=== PATIENT | female | born 1990 | race Caucasian/White ===

== ENCOUNTER 2025-04-18 16:20 | Emergency (ER) | payer BC, SELFPAY ==
[2025-04-18 16:31] VITALS: BP 114/94; BP 150/91; PULSE 114; PULSE 116; RESP 20; TEMP 36.7; O2SAT 98; BMI 42.5
--- NOTE | 2025-04-18 16:53 | ECG_ITS ---
Test Reason : WEAKNESS Blood Pressure : */* mmHG Vent. Rate : 99 BPM Atrial Rate : 99 BPM P-R Int : 154 ms QRS Dur : 82 ms QT Int : 378 ms P-R-T Axes : 30 49 42 degrees QTcB Int : 485 ms Normal sinus rhythm Prolonged QT Abnormal ECG No previous ECGs available Referred By: Pierre Poole Electronically Signed By: JULIAN SUNSHINE
--- NOTE | 2025-04-18 17:24 | ED.GENADULT ---
HPI - General Adult General Chief complaint: General Medical Stated complaint: dizzy, N/V bp 145/101 Time Seen by Provider: 04/18/25 16:23 Source: patient, RN notes reviewed and old records reviewed Mode of arrival: EMS Limitations: no limitations History of Present Illness ED Provider: Virgilio HPI narrative: 34-year-old female with a past medical history significant for PCOS not a new medication presents for evaluation of alcohol withdrawal. Patient reports that she drinks about a pt of vodka daily. Her last drink was yesterday. She reports that she was seen at a hospital in [facility] for alcohol withdrawal and was discharged to a rehab facility. She got to her rehab facility and [place] today which is [facility] in [place] Apparently the patient arrived to the detox facility and was hypertensive as high as 170/109 and was also tachycardic pain The patient reports feeling shaky and nauseous pain She was sent here for further evaluation and medical clearance. The patient denies any pain Related Data Allergies Allergy/AdvReac Type Severity Reaction Status Date / Time No Known Allergies Allergy Verified 04/18/25 16:43 Review of Systems Constitutional: Constitutional: Denies body ache(s), Denies chills, Reports fatigue, Denies fever(s), Denies frequent falls, Denies headache(s) and Reports weakness Eyes: Eyes: Denies blurry vision ENT: Denies vertigo, Denies dizziness and Denies headache(s) Cardiovascular: Cardiovascular: Denies chest pain and Denies dyspnea on exertion Respiratory: Respiratory: Denies cough and Denies dyspnea on exertion Gastrointestinal: Gastrointestinal: Denies abdominal pain, Reports nausea and Denies vomiting Musculoskeletal: Musculoskeletal: Denies back pain Integumentary/Breasts: Skin/Breast: Denies rash Neurologic: Denies vertigo, Denies dizziness, Denies frequent falls, Denies headache(s) and Reports weakness Psychiatric: Psychiatric: Reports anxiety Endocrine: Endocrine: Reports fatigue PMFSH Social History Social History Advance Directives: No Advance Directives Information Provided: Yes Physical Exam ED Vital Signs: Vital Signs - 24 hr 04/18/25 16:31 04/18/25 19:16 04/18/25 21:38 Temperature 98.1 F 97.8 F 98.2 F Pulse Rate 116 H 131 H 104 H Respiratory Rate 20 20 20 Blood Pressure 114/94 H 148/97 H 159/92 H Pulse Oximetry 98 99 98 Oxygen Delivery Method Room Air Room Air Room Air 04/18/25 22:34 Temperature 98.2 F Pulse Rate 104 H Respiratory Rate 20 Blood Pressure 159/92 H Pulse Oximetry 98 Oxygen Delivery Method Room Air BMI result Body Mass Index 42.5 Const General: healthy appearing, comfortable, no acute distress, alert and awake Nutritional Appearance: well nourished Orientation/consciousness: patient oriented x3 HENMT Head: Yes normocephalic and Yes atraumatic Eyes Eyelids: Yes eyelids normal Conjunctivae: conjunctivae normal Sclerae: sclerae normal Corneas: corneas normal Pupils: Equal, round and reactive pupils present EOM: EOMs intact bilaterally Neck Neck: Yes full ROM Resp Effort & Inspection: normal respiratory effort, able to speak in complete sentences and not labored GI Inspection: No distended Palpation (GI): Soft to palpation, not firm, nontender, no guarding and not rigid Skin General skin exam: elasticity normal Neuro General: patient oriented x3 Cranial nerves: Yes CN's II-XII intact bilaterally, Yes Equal, round and reactive pupils present and Yes Bilaterally intact EOM present Cognition (Neuro): normal cognition Extrem Other: Moving all extremities well without any obvious deformities Course Reevaluation(s) Reevaluation #1: The patient is given 2 L IV fluids, thiamine, folic acid, Zofran Ativan. She reports that she feels much better, her heart rate has improved. She reports that she is generally 100-110. Her heart rate decreased to 104. She reports feeling significantly improved, she is not nauseous, she is eager for discharge. Repeat BNP shows the CO2 is still low at 15 but significantly improved from the 10 that she was on arrival. Her anion gap is just barely above normal at 21. The patient is not nauseous or vomiting, she can continue to supplement with oral intake. She was offered admission, but would prefer to be discharged back to her facility. I feel the patient can safely be discharged back to their detox facility Time: 22:30 Medications Administered Discontinued Medications Generic Name Dose Route Start Last Admin Trade Name Freq PRN Reason Stop Dose Admin Lactated Ringer's 1,000 mls @ 999 mls/hr 04/18/25 17:00 04/18/25 19:51 Lr IV 04/18/25 18:00 Infused .Q1H1M DOLORES Infusion Thiamine HCl 500 mg/ Sodium 105 mls @ 210 mls/hr 04/18/25 16:53 04/18/25 18:24 Chloride IV 04/18/25 17:22 Infused ONCE ONE Infusion Folic Acid 1 mg/ Sodium 50.2 mls @ 100.4 mls/hr 04/18/25 16:53 04/18/25 19:51 Chloride IV 04/18/25 17:22 Infused ONCE ONE Infusion Magnesium Sulfate 2 gm in 50 mls @ 150 mls/hr 04/18/25 18:21 04/18/25 19:51 Magnesium Sulfate/H2o IV 04/18/25 18:40 Infused ONCE ONE Infusion Lactated Ringer's 1,000 mls @ 999 mls/hr 04/18/25 18:45 04/18/25 22:05 Lr IV 04/18/25 19:45 Infused .Q1H1M DOLORES Infusion Lorazepam 2 mg 04/18/25 17:02 04/18/25 17:48 Lorazepam 1 Mg Tablet PO 04/18/25 17:03 2 mg ONCE ONE Administration Medical Decision Making Medical Decision Making MDM Narrative: 34 year old female presents for evaluation of medical clearance from an alcohol detox facility. The patient complains of hypotension, tachycardia, nausea and shakiness. These are all sign/symptoms of alcohol withdrawal which the patient is at the detox facility for. We will check basic labs including electrolytes, EKG, ethanol level and treat her with IV fluids, thiamine and folic acid. We will give her a dose of Ativan 2 mg orally as she is not vomiting. If medically cleared, the patient can safely be discharged back to the detox facility Differential Diagnosis Differential Diagnoses: The differential diagnosis associated with the presentation includes Alcohol withdrawal Benzodiazepine withdrawal Dehydration ELEAZAR Admission/Observation Consideration of admission/observation: Escalation of care including admission/observation considered Lab Data 04/18/25 17:44 04/18/25 22:10 Labs: Lab Results 04/18/25 04/18/25 04/18/25 Range/Units 17:44 18:45 18:46 WBC 6.0 (4.8-10.8) X10*3/uL RBC 4.76 (4.20-5.50) X10*6/uL Hgb 13.6 (12.0-16.0) g/dl Hct 38.6 (37.0-47.0) % MCV 81.1 (80.0-98.0) fL MCH 28.6 (27.0-33.0) pg MCHC 35.2 H (31.0-35.0) g/dl RDW 13.7 (11.0-16.0) % Plt Count 152 L (160-400) X10*3/uL MPV 8.9 L (9.4-12.3) fL Immature Gran % (Auto) 0.2 (0.0-0.4) % Neut % (Auto) 54.2 (45-73) % Lymph % (Auto) 39.6 (20-40) % [place] % (Auto) 5.3 (2-11) % Eos % (Auto) 0.2 (0-4) % Baso % (Auto) 0.5 (0-2) % Lymph # (Auto) 2.4 (1.2-4.9) X10*3/uL [place] # (Auto) 0.3 (0.1-1.2) X10*3/uL Eos # (Auto) 0.0 (0.0-0.4) X10*3/uL Baso # (Auto) 0.0 (0.0-0.2) X10*3/uL Abs Immat Gran (auto) 0.01 (0.00-0.03) X10*3/uL Absolute Neuts (auto) 3.3 (2.0-8.3) x10*3/uL Absolute Nucleated RBC 0.000 (0.0-0.012) X10*3/uL Nucleated RBC % (auto) 0.0 (0.0-0.2) /100WBC VBG pH 7.44 H (7.32-7.43) VBG pCO2 26 mmHg VBG pO2 63 mmHg VBG HCO3 17 L (22-26) mmol/L VBG O2 Saturation 88.0 % VBG Base Excess -4.5 mmol/L Sodium 138 (135-145) mmol/L Potassium 4.0 (3.3-5.1) mmol/L Chloride 105 (96-108) mmol/L Carbon Dioxide 10 L* (22-29) mmol/L Anion Gap 27 H (12-20) BUN 9 (9-16) mg/dL Creatinine 0.98 (0.5-1.4) mg/dL Estim Creat Clear Calc 91.3 Estimated GFR > 60 Random Glucose 96 (60-115) mg/dL Calcium 8.5 (8.4-10.2) mg/dL Magnesium 1.3 L* (1.6-2.6) mg/dL Total Bilirubin 0.8 (0.0-1.0) mg/dL AST 149 H (5-31) U/L ALT 89 H (0-31) U/L Alkaline Phosphatase 136 H (39-117) U/L Troponin I High Sens < 2.7 (<3.5-17.0) ng/L Total Protein 7.4 (6.5-8.0) g/dL Albumin 4.1 (3.5-5.0) g/dL Lipase 34 (8-78) U/L Beta HCG, Quant < 2 mIU/mL Urine Color Yellow Urine Appearance Clear Urine pH 5.5 (5.0-9.0) Ur Specific [place] <= 1.005 (1.005-1.025) Urine Protein Negative (Neg-Trace) mg/dL Urine Glucose (UA) Negative (Negative) mg/dL Urine Ketones Negative (Negative) mg/dL Urine Blood Negative (Negative) Urine Nitrite Negative (Negative) Ur Leukocyte Esterase Negative (Negative) Urine RBC 0-2 (0-2) /HPF Urine WBC 0-5 (0-5) /HPF Ur Squamous Epith Cells 3-5 (0-2) /HPF Urine Bacteria None Seen (None Seen) Hyaline Casts 0-2 (0-2) /LPF Urine Opiates Screen Not Detected (Not Detect) Ur Buprenorphine Scrn Not Detected (Not Detect) ng/mL Ur Oxycodone Screen Not Detected (Not Detect) ng/mL Urine Methadone Screen Not Detected (Not Detect) ng/mL Urine Fentanyl Screen Not Detected (Not Detect) Ur Barbiturates Screen Not Detected (Not Detect) Ur Phencyclidine Scrn Not Detected (Not Detect) Ur Amphetamines Screen Not Detected (Not Detect) U Benzodiazepines Scrn Not Detected (Not Detect) Urine Cocaine Screen Not Detected (Not Detect) U Marijuana (THC) Screen Not Detected (Not Detect) Ethyl Alcohol < 10 mg/dL 04/18/25 Range/Units 22:10 WBC (4.8-10.8) X10*3/uL RBC (4.20-5.50) X10*6/uL Hgb (12.0-16.0) g/dl Hct (37.0-47.0) % MCV (80.0-98.0) fL MCH (27.0-33.0) pg MCHC (31.0-35.0) g/dl RDW (11.0-16.0) % Plt Count (160-400) X10*3/uL MPV (9.4-12.3) fL Immature Gran % (Auto) (0.0-0.4) % Neut % (Auto) (45-73) % Lymph % (Auto) (20-40) % [place] % (Auto) (2-11) % Eos % (Auto) (0-4) % Baso % (Auto) (0-2) % Lymph # (Auto) (1.2-4.9) X10*3/uL [place] # (Auto) (0.1-1.2) X10*3/uL Eos # (Auto) (0.0-0.4) X10*3/uL Baso # (Auto) (0.0-0.2) X10*3/uL Abs Immat Gran (auto) (0.00-0.03) X10*3/uL Absolute Neuts (auto) (2.0-8.3) x10*3/uL Absolute Nucleated RBC (0.0-0.012) X10*3/uL Nucleated RBC % (auto) (0.0-0.2) /100WBC VBG pH (7.32-7.43) VBG pCO2 mmHg VBG pO2 mmHg VBG HCO3 (22-26) mmol/L VBG O2 Saturation % VBG Base Excess mmol/L Sodium 138 (135-145) mmol/L Potassium 3.7 (3.3-5.1) mmol/L Chloride 106 (96-108) mmol/L Carbon Dioxide 15 L (22-29) mmol/L Anion Gap 21 H (12-20) BUN 6 L (9-16) mg/dL Creatinine 0.92 (0.5-1.4) mg/dL Estim Creat Clear Calc 97.2 Estimated GFR > 60 Random Glucose 101 (60-115) mg/dL Calcium 8.3 L (8.4-10.2) mg/dL Magnesium 1.5 L (1.6-2.6) mg/dL Total Bilirubin (0.0-1.0) mg/dL AST (5-31) U/L ALT (0-31) U/L Alkaline Phosphatase (39-117) U/L Troponin I High Sens (<3.5-17.0) ng/L Total Protein (6.5-8.0) g/dL Albumin (3.5-5.0) g/dL Lipase (8-78) U/L Beta HCG, Quant mIU/mL Urine Color Urine Appearance Urine pH (5.0-9.0) Ur Specific [place] (1.005-1.025) Urine Protein (Neg-Trace) mg/dL Urine Glucose (UA) (Negative) mg/dL Urine Ketones (Negative) mg/dL Urine Blood (Negative) Urine Nitrite (Negative) Ur Leukocyte Esterase (Negative) Urine RBC (0-2) /HPF Urine WBC (0-5) /HPF Ur Squamous Epith Cells (0-2) /HPF Urine Bacteria (None Seen) Hyaline Casts (0-2) /LPF Urine Opiates Screen (Not Detect) Ur Buprenorphine Scrn (Not Detect) ng/mL Ur Oxycodone Screen (Not Detect) ng/mL Urine Methadone Screen (Not Detect) ng/mL Urine Fentanyl Screen (Not Detect) Ur Barbiturates Screen (Not Detect) Ur Phencyclidine Scrn (Not Detect) Ur Amphetamines Screen (Not Detect) U Benzodiazepines Scrn (Not Detect) Urine Cocaine Screen (Not Detect) U Marijuana (THC) Screen (Not Detect) Ethyl Alcohol mg/dL Discharge Plan Discharge Clinical Impression: Alcohol abuse Patient Disposition: Xfer Other Transfer Details: [facility] Instructions: Abuse of Alcohol (ED), Alcohol Withdrawal (ED) Additional Instructions: Your workup in the ER showed that you were quite dehydrated likely from alcohol abuse and alcohol withdrawal. You were treated with IV fluids, thiamine, folic acid which are essentially vitamins that most alcoholics do not have enough of You should continue to drink lots of fluids and eat adequately. Follow up with your primary doctor, return for new or worsening symptoms Interventions: ED Discharge Assessment Last Done: 04/18/25 22:34 Discharge Date/Time: 04/18/25 22:47 Print Language: Venezuelan
[2025-04-18] MEDS: Lactated Ringers 1,000 ML 999 ML IV ×2 (17:49→19:15)
[2025-04-18 17:54] LABS: MANUAL DIFF FLAG NO
[2025-04-18 17:56] LABS: Hematocrit 38.6 % (37.0-47.0); Hemoglobin 13.6 g/dl (12.0-16.0); Imm Gran Abs Auto 0.01 X10*3/uL (0.00-0.03); Imm Gran Pct Auto 0.2 % (0.0-0.4); Lymphocytes Absolute Auto 2.4 X10*3/uL (1.2-4.9); Mean Corpuscular HGB Conc 35.2 g/dl (31.0-35.0); Mean Corpuscular Hemoglobin 28.6 pg (27.0-33.0); Mean Corpuscular Volume 81.1 fL (80.0-98.0); NRBC Abs Auto 0.000 X10*3/uL (0.0-0.012); NRBC Pct Auto 0.0 /100WBC (0.0-0.2); Platelet Count 152 X10*3/uL (160-400); Red Blood Count 4.76 X10*6/uL (4.20-5.50); White Blood Count 6.0 X10*3/uL (4.8-10.8)
[2025-04-18 18:21] LABS: Troponin-I High Sensitivity < 2.7 ng/L (<3.5-17.0)
[2025-04-18 18:22] LABS: Alanine Aminotransferase 89 U/L (0-31); Albumin Level 4.1 g/dL (3.5-5.0); Alkaline Phosphatase 136 U/L (39-117); Anion Gap 27 (12-20); Aspartate Amino Transferase 149 U/L (5-31); Blood Urea Nitrogen 9 mg/dL (9-16); Calcium 8.5 mg/dL (8.4-10.2); Carbon Dioxide 10 mmol/L (22-29); Chloride 105 mmol/L (96-108); Creatinine Clr Calc Pharmacy 91.3; Estimated Glomerular Filt Rate > 60; Lipase 34 U/L (8-78); Magnesium 1.3 mg/dL (1.6-2.6); Potassium 4.0 mmol/L (3.3-5.1); Sodium 138 mmol/L (135-145); Total Protein 7.4 g/dL (6.5-8.0)
[2025-04-18 18:51] LABS: VBG HCO3 17 mmol/L (22-26); VBG O2 % Saturation 88.0 %
[2025-04-18 18:54] LABS: Venous Blood Gas Refer to POC result
[2025-04-18 18:59] LABS: Appearance Urine Clear; Glucose Urine UA Negative (Negative); PH 5.5 (5.0-9.0); Specific Gravity - Urine <= 1.005 (1.005-1.025)
--- OUTSIDE RECORDS SUMMARY | 2025-04-18 19:03 | XMS_ITS | Clinical Summary ---
Author Organization [facility] Address [address] [place] [address] [place] [id number] Care Team Providers Care Musical Instrument Mechanic Name Role Phone Julianna Caldwell Md Unavailable Poc, Not Required Pcp Or Unavailable Unavail able Poc, Not Assigned Pcp Or Primary Care Provider U navailable Allergies No known active allergies Medications APRI 0.15 MG-30 MCG TAB (DESOGESTREL-ETHIN YL ESTRADIOL)Indicati ons:Family planning, contraceptive checking and surveillance TAKE 1 TABLET ORALLY 1 TIME A DAY 28 12 9 Active PNV/IRON,CARB/OM-3 /FA/FAT 1 (PRE-BIJAL MULTIVITAMINS/MINE RALS ORAL) Take by mouth Daily Active Calcium Carbonate (TUMS) 300 mg (750 mg) tablet, chewable Chew Active DIPHENHYDRAMINE HCL (BENADRYL ALLERGY ORAL) Take by mouth Ac tive Amphetamine-Dextro amphetamine (ADDERALL) 15 mg tablet 0 8 Active QUEtiapine (SEROQUEL) 25 mg tablet 2 8 Active econazole nitrate 1 % Cream Apply to the affected area twice daily 30 gram 8 Active aluminum chloride (DRYSOL DAB-O-MATIC) 20 % Solution Apply to the affected area daily as directed 1 Bottle 1 8 Active Active Problems Problem Noted Date Diagnosed Date Anxiety 09/23/2017 Overview (09/23/2017): [facility]es [facility]- sees Dr Harrison and therpaist is nereyda romero BMI 39.0-39.9,adult 09/23/2017 Iron deficiency anemia 07/05/2016 Migraine headache 03/15/2015 Resolved Problems Problem Noted Date Diagnosed Date Resolved Date Erythema nodosum 07/20/2006 08/16/2007 Infectious mononucleosis 05/19/200605/2007 Headache(784.0) 04/16/2006 08/16/2007 Hypercholesterolemia 006 Pharyngitis 04/16/2006 Tonsillitis 04/16/2006 Upper respiratory infection 04/16/2006 Pneumonia, organism unspecified(486) 08/16/2007 Bronchitis 04/16/2006 Immunizations Immunization Administration Dates Next Due DTaP Vaccine 06/23/1994, 1,01/11/1990,11/09,1989 HFlu B Conj (Unspecified Formulation) 10/18/1990 ,04/29/1990 HPV4 Vaccine(6,11,16,18) (Gardasil4) 01/29/2009, 08/16/2007 Hep B Vaccine (Unspecified Formulation) 10/26/2001,03/23/2001,02/16/2001 Influenza Vaccine (Unspecifi ed Formulation) 01/29/2009 Influenza Vaccine, Multi Dos e Vial, 0.5 mL, >/=6 MOS 04/16/2017,07/03/2016,03/15/2015 MMR Vaccine 06/23/1994,10/18/1990 Meningococcal ACWY (Menactra ) Conjugate Vaccine 01/29/2009 Polio Vaccine (Inactivated) 06/23/1994,0 01/27/1991,1989,08/31 TD Vaccine (Adult) 02/16/2001 TdaP 07/03/2016,08/14/2015,01/29/2009 Varicella Disease 05/17/1996 Surgical History Surgery Date Site/Laterality Comments TAB - INTRA-AMNIOTIC INJECTION 04/22 @ 8 wks s/p wisdom teeth removal s/p 3 abortions Medical History Medical History Date Comments Infectious mononucleosis 05/19/2006 Erythema nodosum 07/20/2006 Pneumonia, organism unspecified(486) Preeclampsia Family History Medical History Relation Comments Allergies Father 2 Psych - depression Father 3 Alcoholism Maternal Grandfather Alzheimer's Maternal Grandfather CAD/PVD Maternal Grandfather Cancer Maternal Grandfather Hyperlipidemia Maternal Grandmother Diabetes - unknown type Maternal Uncle 1 Obesity Maternal Uncle 2 Psych - depression Mother 2 diabetes mellitus Other 1 cousin no breast or colon ca Other 2 parkinsons and form of a dementia Paternal Grand mother Relation Status Comments Father 1 Alive Father 2 Father 3 Maternal Grandfather Alive Maternal Grandmother Alive Maternal Uncle 1 Maternal Uncle 2 Mother 1 Alive Mother 2 Other 1 Other 2 Paternal Grandfather Alive Paternal Grandmother Sister Alive Social History Tobacco Use Types Packs/Day Years Used Date Smoking Tobacco: Former Smokeless Tobacco: Current Comments:quit smoking 6 week s ago. used to smoke 1ppd - since age 19. uses ecigarette w/o tnicotine Alcohol Use Standard Drinks/Week Comments Yes 5 (1 standard drink = 0.6 oz pur e alcohol) Request Assistance Answer Date Recorded Requests Assistance Not on file 03/28/2019 Urgent Assistance Needed Not on file 019 Comments No Sex and Gender Information Value Date Recorded Sex Assigned at Not on file Legal Sex Female 4:54 AM EDT Gender Identity Not on file Sexual Orientation Not on file Obstetrics History Para Term AB IAB SAB Ectopic Multiple Livin g Live Births 1 Date Outcome GA Total Labor Labor/2nd/3rd Weight Sex Type Anes PTL Lena A1 A5 Name Clin Last Filed Vital Signs Vital Sign Reading Time Taken Comments Blood Pressure 128/88 09/23/2017 2:56 PM EDT Pulse 122 09/23/2017 2:56 PM EDT Temperature 36.7 C (98.1 F) 09/23/2017 2:56 PM EDT Respiratory Rate - - Oxygen Saturation 99% 09/23/2017 2:56 PM EDT Inhaled Oxygen Concentration - - Weight 97.1 kg (214 lb) 09/23/2017 2:56 PM EDT Height 157.5 cm (5' 2 ) 09/23/2017 2:56 PM EDT Body Mass Index 39.14 09/23/2017 2:56 PM EDT Plan of Treatment Health Maintenance Due Date Last Done Comments OFFICE VISIT 1989 HEP B INITIAL SCREENING 2007 HEP C SCREENING 2007 PAP: UPDATE W EDIT MODIFIERS 2010 02/14/2009, 08/16/2007 PERIODIC HEALTH REVIEW 07/03/2017 7 (Completed in Physical Exam) LIPID SCREENING 03/15/2020 03/15/2015, 03/13/2005 * GLUCOSE OR A1C SCREENING - Q3YR 2024 09/23/2017, 07/03/2016, 03/15/2015, Additional history exists COVID-19 Vaccine (3 season) 2025 09/16/2020, 08/26/2020 FLU SEASONAL (#1) 01/15/2025 02/12/2020, 04/28/2019, 06/16/2018, Additional history exists DTAP/TDAP/TD VACCINE (9 - Td or Tdap) 07/03/2026 07/03/2016, 08/14/2015, 01/29/2009, Additional history exists HAEMOPHILUS INFLUENZA VACCINE Completed 10/18/1990, 04/29/1990 POLIO VACCINE Completed 06/23/1994, 01/15, 1989, Additional history exists RUBELLA Completed 06/23/1994, 10/18/1990 HEPATITIS B VACCINE Completed 10/26/2001, 03/23/2001, 02/16/2001 HIV SCREENING Addressed 07/03/2016 (Patient/Parental Refusal) Overridden with the intention of not completing the topic HEPATITIS A VACCINE Aged Out No longe r eligible based on patient's age to complete this topic PNEUMOCOCCAL VACCINE(S) Aged Out No l onger eligible based on patient's age to complete this topic RSV Vaccine //toddler Aged Out No longer eligible b ased on patient's age to complete this topic Procedures Procedure Name Priority Date/Time Associated Diagnosis Comments COMPREHENSIVE METABOLIC PROFILE Routine 09/23/2017 3:38 PM EDT Fatigue, unspecified type LIPID PROFILE Routine 03/15/2015 10:28 AM EDT Screening for lipid disorders CYTOPATHOLOGY, THIN LAYER PREP, AUTOMATED SCREENING, MANUAL RESCREENING, PHYSICIAN SUPERVISION Routine 02/14/2009 3:37 PM EDT Gynecologic Exam from Last 3 Months or Most Recently Relevant to Health Maintenance Results * (ABNORMAL) LIPID PROFILE (03/15/2015 10:28 AM EDT) CHOLESTEROL 206(H) 0 - 200 mg/dL [facility] HDL 57 >40 mg/dL [facility] Comment: NCEP GUIDELINES Desirable Borderline Undesirable HDL cholesterol Above 60 40 - 59 Below 40 CHOL/HDL RATIO 3.61 0.00 - 4.90 [facility] LDL 125 0 - 130 mg/dL [facility] TRIGLYCERIDES 121 40 - 197 mg/dL [facility] FASTING STATUS Random [facility] Venous Draw 03/15/2015 10:2 8 AM EDT 03/15/2015 10:28 AM EDT Julianna Caldwell GENERAL LAB Final Result [facility] [address] [place] [address] * (ABNORMAL) SUREPATH PAP SMEAR (02/14/2009 3:37 PM EDT) SUREPATH PAP TEST SEE TEXT(A) [facility] DILCIA BURNA Comment: SUREPATH SOURCE: CERVIX CLINICAL HISTORY: LMP: 02/11/2009 ORAL CONTRACEPTIVE(BCP) STATEMENT OF ADEQUACY: SATISFACTORY, ENDOCERVICAL/TRANSFORMATION ZONE COMPONENT IS PRESENT RESULT: NEGATIVE FOR INTRAEPITHELIAL LESION OR MALIGNANCY ORGANISMS: FUNGAL ORGANISMS MORPHOLOGICALLY CONSISTENT WITH MORRO SPECIES COMMENTS: THIS CASE WAS SUCCESSFULLY PROCESSED BY THE ZAP SLIDE CINDER PIT CRANE OPERATOR. RESULT DATE: 02/19/2009 TECHNOLOGIST: GARTH/SRINIVAS GYNECOLOGICAL CYTOLOGY IS A SCREENING PROCEDURE SUBJECT TO BOTH FALSE NEGATIVE AND FALSE POSITIVE RESULTS. IT IS MOST RELIABLE WHEN A SATISFACTORY SAMPLE IS OBTAINED ON A REGULAR REPETITIVE BASIS. RESULTS MUST BE INTERPRETED IN THE CONTEXT OF HISTORIC AND CURRENT CLINICAL INFORMATION. QUEST REPORT COMMENTS: THIS CASE WAS SUCCESSFULLY PROCESSED BY THE [employer]AP SLIDE CINDER PIT CRANE OPERATOR. 02/14/2009 3:37 PM EDT 02/14/2009 3:37 PM EDT Narrative [facility] DILCIA EULALIA - 02/20/2009 5:40 AM EDT 1-Anticipated interval to next Pap: 1 yr 2-Specimen source: cervix. 3-Menstrual History: Patient's last menstrual period was 02/11/2009.; if LMP noted, hit Enter now; otherwise select any other appropriate line(s): -as noted. 4-Other history: BCPs. 5-Reflex HPV test for ASCUS or AGC: NO us Tiara Kim [facility] GENERAL LAB Final Resul t [facility] [address] [place] [address] from Last 3 Months or Most Recently Relevant to Health Maintenance Care Teams Musical Instrument Mechanic Relationship Specialty Start Date End Date Poc, Not Required Pcp Or PCP - Payer 02/14/15 Poc, Not Assigned Pcp Or PCP - General 05/17/20 Julianna Caldwell MD Internal Medicine 08/07/15
--- OUTSIDE RECORDS SUMMARY | 2025-04-18 19:03 | XMS_ITS | Clinical Summary ---
Author Organization [email or web address] Address [address] [facility] [place] [address] Care Team Providers Care Medical Collections Name Role Phone Pierre Shay Primary Care Provider + Allergies No known active allergies Medications Slynd 4 mg (28) tab TAKE 1 TABLET BY MOUTH EVERY DAY 4 Active lorazepam (ATIVAN) 1 MG tablet TAKE UP TO 1 TABLET A DAY NEEDED FOR SEVERE ANXIETY/PANIC. 5 Active metFORMIN (GLUCOPHAGE-XR) 750 MG 24 hr tablet TAKE 2 TABLETS BY MOUTH DAILY AT DINNER 5 Active omeprazole (PriLOSEC) 20 MG capsule TAKE 1 CAPSULE (20 MG) BY MOUTH EVERY EVENING Active atomoxetine (STRATTERA) 18 MG capsule TAKE 1 CAPSULE BY MOUTH EVERY MORNING WITH BREAKFAST 5 Active naproxen sodium (ALEVE) 220 MG tablet 1-2 capsules(220-440 mg) by mouth in the 1st hr, then 220 mg(1 caplet) by mouth every 8-12 hrs as needed for 7 days. Max 660 mg/day. 5 07/10/19 Active Additional Information Patient not taking.Reported on 09/26/2024 fluticasone propionate (FLONASE) 50 mcg/actuation nasal spray 2 sprays in each nostril daily x1 week then 1-2 sprays in each nostril daily. (use smallest dose possible for symptom control after week 1). 5 07/10/19 Active Additional Information Patient not taking.Reported on 09/26/2024 sodium chloride (OCEAN) 0.65 % nasal spray Instill 1 spray into each nostril as needed for congestion 15 mL 12 5 05/13/20 26 Active fluconazole (DIFLUCAN) 150 MG tablet Take 1 tablet by mouth, then in 3 days take the 2nd tablet 2 tablet 5 Active Active Problems Problem Noted Date Diagnosed Date BMI 39.0-39.9,adult 09/23/2017 Iron deficiency anemia 07/05/2016 Migraine headache 03/15/2015 Suicide attempt 07/19/2012 Overview (06/06/2024): Suicide attempt; Tylenol OD age 18 Anxiety 05/30/2012 Overview (06/06/2024): [facility]- sees Dr Harrison and therpaist is nereyda romero Posttraumatic stress disorder 05/30/2012 Overview (06/06/2024): Posttraumatic stress disorder Depressive disorder 04/20/2012 Overview (06/06/2024): Depressive disorder H/O headache 04/20/2012 Overview (06/06/2024): H/O Headache Social History Tobacco Use Types Packs/Day Years Used Date Smoking Tobacco: Former Cigarettes Smokeless Tobacco: Never Tobacco Cessation:Counseling Given: Not Answered Comments No Sex and Gender Information Value Date Recorded Sex Assigned at Not on file Legal Sex Female 3:26 PM EST Gender Identity Not on file Sexual Orientation Not on file Last Filed Vital Signs Vital Sign Reading Time Taken Comments Blood Pressure 120/82 09/26/2024 9:50 AM EDT Pulse 100 09/26/2024 9:50 AM EDT Temperature 36.6 C (97.9 F) 09/26/2024 9:50 AM EDT Respiratory Rate 20 09/26/2024 9:50 AM EDT Oxygen Saturation 98% 09/26/2024 9:50 AM EDT Inhaled Oxygen Concentration - - Weight - - Height - - Body Mass Index - - Plan of Treatment Health Maintenance Due Date Last Done Comments Depression: Screening Annually using PHQ-2/9 in Adults 18 yrs or above (or HM Modifier)([facility]) 2007 Hepatitis C Virus Infection in Adolescents and Adults: Screening (or Modifier) ([facility]) 2007 SDOH Screening Reminder: Annually for all adults ([facility] ) 2007 Cervical Cancer: hrHPV alone or with cotesting Pap for Pts 30-65yrs screening every 5yrs ([facility] ) 2010 Cervical Cancer Screenin-65 yrs of age (or Modifier) 02/15/2012 Cervical Cancer Screening: Pap every 3 yrs pts age 21-65 02/15/2012 02/14/2009 Cervical Cancer: Pap Screening with Modifier timing ([facility] ) 02/15/2012 02/14/2009 Flu Vaccination: Yearly for ages 18mos through 64 years (or Modifier)([facility] ) 12/15/2024 01/29/2009 COVID-19 Vaccine Screening: Initial Series and Booster Status ([facility]) (2024- season) 2025 DTaP/Tdap/Td Vaccines ([facility]) (9 - Td or Tdap) 07/03/2026 07/03/2016, 08/14/2015, 01/29/2009, Additional history exists Zoster/Shingles Vaccine Series Screening: Adults aged 18+ yrs (or HM Modifiers)([facility] ) (1 of 2) 2039 Pneumococcal Vaccination Screening: Pts 0-19 & 19-49 yrs of age ([facility]) Aged Out No longer eligible based on patient's age to complete this topic Medical Devices Not on file Insurance Care Teams Medical Collections Relationship Specialty Start Date End Date Pierre Shay PA [address] [place] [address] [place] [phone] PCP - General 09/26/24
[2025-04-18 19:07] LABS: Cannabinoid Screen Urine Not Detected (Not Detect)
[2025-04-18] MEDS: Magnesium Sulfate/H2O 2 GM/50 ML PIGGYBACK IV (19:15)
[2025-04-18 19:16] VITALS: BP 148/97; PULSE 131; RESP 20; TEMP 36.6; O2SAT 99
--- NOTE | 2025-04-18 19:16 | PC.NURSE ---
this rn assumed care of pt, pt resting in [place] at this time and offers no complaints. pt medicated dharmesh rivera and SERGIO Borrego aware of vital signs.
[2025-04-18 21:38] VITALS: BP 159/92; PULSE 104; RESP 20; TEMP 36.8; O2SAT 98
[2025-04-18 22:28] LABS: Anion Gap 21 (12-20); Blood Urea Nitrogen 6 mg/dL (9-16); Calcium 8.3 mg/dL (8.4-10.2); Carbon Dioxide 15 mmol/L (22-29); Chloride 106 mmol/L (96-108); Creatinine Clr Calc Pharmacy 97.2; Estimated Glomerular Filt Rate > 60; Magnesium 1.5 mg/dL (1.6-2.6); Potassium 3.7 mmol/L (3.3-5.1); Sodium 138 mmol/L (135-145)
[2025-04-18 22:34] VITALS: BP 159/92; PULSE 104; RESP 20; TEMP 36.8; O2SAT 98
--- NOTE | 2025-04-18 22:46 | PC.NURSE ---
report given to Jimena MAYORGA at detox facility
== END 2025-04-18 22:47 | disposition other institution (70) ==
PROVIDERS: Physician Assistant; Emergency Provider Emergency Medicine
DX: F10.10 Alcohol abuse, uncomplicated (principal); Y90.0 Blood alcohol level of less than 20 mg/100 ml; F41.9 Anxiety disorder, unspecified; E86.0 Dehydration
CPT/HCPCS: 36415; 80048; 80053; 80307; 81001; 82803; 83690; 83735; 84484; 84702; 85025; 93005; 96361; 96374; 96375; 99284; J1808; J3411; J3475; J7120

== ENCOUNTER → 2025-04-18 16:53 | Outpatient (BNV) | payer BC, SELFPAY | PROVIDERS: Emergency Provider Emergency Medicine; Visit Provider Internal Medicine | DX: R94.31 Abnormal electrocardiogram [ECG] [EKG] (principal); R53.1 Weakness | CPT/HCPCS: 93010 ==